=== PATIENT | female | born 1995 | race Caucasian/White ===

== ENCOUNTER 2017-05-29 22:33 | Emergency (ER) | payer MEDICAID, OTHER ==
[~2017-05-29 22:33] MED LIST: TAB-TAB PO
[2017-05-29 22:43] VITALS: BP 137/79; PULSE 118; RESP 18; TEMP 98.4
[2017-05-29] MEDS ORDERED: TETANUS/DIPHTHERIA TOXOID ADULT 0.5 ML VIAL IM ONE (23:15)
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
[2017-05-29 23:43] LABS: AUTOMATED NEUTROPHIL # 14.2 TH/MM3 (1.8-7.7); BASOPHIL # 0.1 TH/MM3 (0-0.2); BASOPHIL % 0.4 % (0.0-2.0); HEMATOCRIT 40.6 % (35.0-46.0); HEMOGLOBIN 13.4 GM/DL (11.6-15.3); LYMPH % 7.4 % (9.0-44.0); LYMPHOCYTE # 1.2 TH/MM3 (1.0-4.8); MEAN CELL VOLUME 82.4 FL (80.0-100.0); MEAN CORPUSCULAR HEMOGLOBIN 27.2 PG (27.0-34.0); MEAN PLATELET VOLUME 8.2 FL (7.0-11.0); NEUT % 86.2 % (16.0-70.0); PLATELET COUNT 345 TH/MM3 (150-450); RED BLOOD COUNT 4.92 MIL/MM3 (4.00-5.30); RED CELL DISTRIBUTION WIDTH 15.4 % (11.6-17.2); WHITE BLOOD COUNT 16.5 TH/MM3 (4.0-11.0)
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
[2017-05-30 00:01] LABS: ACETAMINOPHEN LESS THAN 2.0 MCG/ML (10.0-30.0); ALBUMIN 4.1 GM/DL (3.4-5.0); ALKALINE PHOSPHATASE 92 U/L (45-117); ALT (GPT) 36 U/L (9-42); AST (GOT) 27 U/L (16-38); BICARBONATE 21.1 MEQ/L (21.0-32.0); BLOOD UREA NITROGEN 7 MG/DL (7-18); CALCIUM 8.4 MG/DL (8.5-10.1); CHLORIDE 114 MEQ/L (98-107); CREATININE 0.72 MG/DL (0.50-1.00); GLOMERULAR FILTRATION RATE 103 ML/MIN (>89); GLUCOSE,RANDOM 94 MG/DL (74-106); SODIUM (NA) 145 MEQ/L (136-145); TOTAL BILIRUBIN ADULT 0.3 MG/DL (0.2-1.0); TOTAL PROTEIN 7.7 GM/DL (6.4-8.2)
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
[2017-05-30] MEDS ORDERED: LORazepam 2 MG/ML VIAL IM ONE (00:15)
[2017-05-30 06:50] VITALS: BP 138/78; PULSE 90; RESP 16; TEMP 96.6; O2SAT 100
[2017-05-30] MEDS ORDERED: TRAM50TA PO (07:52)
[2017-05-30] MEDS ORDERED: PHEN-510 (07:52)
[2017-05-30] MEDS ORDERED: CEPH500C PO (07:52)
[2017-05-30 10:13] VITALS: BP 133/70; PULSE 51; RESP 18; O2SAT 99
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
== END 2017-05-30 13:28 | disposition home or self-care (01) ==
LOC: NEPD 22:33 → NEPJ 05-30 13:28
DX: F43.25 Adjustment disorder with mixed disturbance of emotions and conduct (principal); S30.811A Abrasion of abdominal wall, initial encounter; S30.810A Abrasion of lower back and pelvis, initial encounter; S00.83XA Contusion of other part of head, initial encounter; Y04.8XXA Assault by other bodily force, initial encounter; Z23 Encounter for immunization; F10.94 Alcohol use, unspecified with alcohol-induced mood disorder; F12.90 Cannabis use, unspecified, uncomplicated; Y90.5 Blood alcohol level of 100-119 mg/100 ml
CPT/HCPCS: 70450; 70486; 80053; 80307; 84703; 85025; 90471; 90714